=== PATIENT | male | born 1960 | race Caucasian/White ===

== ENCOUNTER 2017-01-05 11:23 | Observation (INO) | payer SELFPAY ==
[2017-01-05] VITALS (8 sets, daily range): BP systolic 123–131; BP diastolic 70–82; PULSE 76–82; RESP 18–22; TEMP 97.2–98.3; O2SAT 94–100
[~2017-01-05] VITALS: Ht 167.6 cm; Wt 94.0 kg
[2017-01-05] MEDS ORDERED: SODIUM CHLOR 0.9% 1000 ML INJ 1,000 ML IV ONE ×2 (11:30)
[2017-01-05] MEDS ORDERED: SODIUM CHLORIDE 0.9% FLUSH 10 ML FLUSH IVF PRN (11:30)
[2017-01-05] MEDS ORDERED: INSULIN HUMAN REGULAR 1,000 UNITS/10 ML VIAL SQ ONE (11:30)
[2017-01-05] MEDS ORDERED: MORPHINE SULFATE 4 MG/ML INJ IV PUSH ONE (11:45)
--- NOTE | 2017-01-05 11:59 | PD ---
HPI Chief Complaint: Allergic/Adverse Reaction Time Seen by Provider: 11:30 Travel History International Travel<30 days: No Contact w/Intl Traveler<30days: No Traveled to known affect area: No History of Present Illness HPI Is a 56-year-old man who presents emergency department for concern for allergic reaction. He states he injected a new type of insulin this morning, and the patient informed, unsure what the name is. He took around 8 AM. He went to work at [employer] he began to feel tongue swelling, lightheaded and dizzy, felt like she is given a pass out, got pale and diaphoretic. He has had multiple episodes of nausea vomiting. Ambulance was called. When they arrived they found him ill-appearing pale and diaphoretic. His blood sugar was elevated in the 400s. Blood pressure was elevated, heart rate was within the normal range. They felt like his tongue and lips were swollen. He improved some in route. They gave 0.3 mg of subcutaneous epinephrine, 125 mg of IV Solu-Medrol, and a breathing treatment. They heard wheezing on exam as well. Patient states she's had an allergic reaction before but nothing this pronounced. He is currently complaining of severe headache that he states started this morning, and nausea. History Past Medical History Narrative Medical CAD Diabetes Hypertension Neuropathy Tetanus Vaccination: < 5 Years Influenza Vaccination: Yes Social History Alcohol Use: No Tobacco Use: No Allergies-Medications (Allergen,Severity, Reaction): Coded Allergies: Latex (Verified Allergy, Unknown, 01/05/17) Penicillin (Verified Allergy, Unknown, 01/05/17) Review of Systems Except as stated in HPI: all other systems reviewed are Neg Physical Exam Narrative GENERAL: Ill-appearing 56-year-old man, anxious, pale, diaphoretic. SKIN: Focused skin assessment cool, pale. No urticaria or rash. HEAD: Atraumatic. Normocephalic. EYES: Pupils equal and round. No scleral icterus. No injection or drainage. ENT: No nasal bleeding or discharge. Mucous membranes pink and moist. NECK: Trachea midline. No JVD. CARDIOVASCULAR: Heart rates regular. No appreciable murmurs. RESPIRATORY: Some coarse breath sounds but no appreciable wheezing. GASTROINTESTINAL: Abdomen soft, non-tender, nondistended. Hepatic and splenic margins not palpable. MUSCULOSKELETAL: No obvious deformities. No edema. NEUROLOGICAL: Awake and alert. No obvious cranial nerve deficits. Motor grossly within normal limits. Normal speech. PSYCHIATRIC: Anxious. Data Data Last Documented VS Vital Signs Date Time Temp Pulse Resp B/P Pulse Ox O2 Delivery O2 Flow Rate FiO2 01/05/17 12:48 79 20 131/70 98 Room Air 01/05/17 12:00 3.00 01/05/17 11:33 97.2 Orders Electrocardiogram (01/05/17 11:30) Complete Blood Count With Diff (01/05/17 11:30) Comprehensive Metabolic Panel (01/05/17 11:30) Magnesium (Mg) (01/05/17 11:30) Prothrombin Time / Inr (Pt) (01/05/17 11:30) Act Partial Throm Time (Ptt) (01/05/17 11:30) Troponin I (01/05/17 11:30) Lipase (01/05/17 11:30) Chest, Single Ap (01/05/17 11:30) Ecg Monitoring (01/05/17 11:30) Iv Access Insert/Monitor (01/05/17 11:30) Oximetry (01/05/17 11:30) Oxygen Administration (01/05/17 11:30) Sodium Chloride 0.9% Flush (Ns Flush) (01/05/17 11:30) Ct Brain W/O Iv Contrast(Rout) (01/05/17 ) Insulin Human Regular Inj (Novolin R Inj (01/05/17 11:30) Sodium Chlor 0.9% 1000 Ml Inj (Ns 1000 M (01/05/17 11:30) Sodium Chlor 0.9% 1000 Ml Inj (Ns 1000 M (01/05/17 11:30) Morphine Inj (Morphine Inj) (01/05/17 11:45) Place In Observation (01/05/17 ) Vital Signs (Adult) Q4H (01/05/17 14:12) Bedside Glucose WILLEM.AC&HS (01/05/17 14:12) Patient Support Specialist / Telemetry .CONTINUOUS (01/05/17 14:12) Intake + Output WILLEM.QSHIFT (01/05/17 14:12) Diet 1800 Ada Cons Carb (01/05/17 Dinner) Sodium Chlor 0.9% 1000 Ml Inj (Ns 1000 M (01/05/17 14:12) Sodium Chloride 0.9% Flush (Ns Flush) (01/05/17 14:15) Sodium Chloride 0.9% Flush (Ns Flush) (01/05/17 21:00) Acetaminophen (Tylenol) (01/05/17 14:15) Ondansetron Inj (Zofran Inj) (01/05/17 14:15) Basic Metabolic Panel (Bmp) (01/06/17 06:00) Complete Blood Count With Diff (01/06/17 06:00) Resp Oxygen James C Titrat 1-4 L (01/05/17 ) Heparin Inj (Heparin Inj) (01/05/17 14:15) Naloxone Inj (Narcan Inj) (01/05/17 14:15) Insulin Aspar Prot 70/30 Inj (Novolog Mi (01/05/17 17:00) Bedside Glucose WILLEM.AC&HS&03 (01/05/17 14:12) Blood Glucose Goal (Criteria) (01/05/17 14:12) Hypoglycemia 70 Mg/Dl Or < (01/05/17 14:12) Notify Dr: Other (01/05/17 14:12) Dextrose 50% In Frank (Vial) Inj (D50w (Vi (01/05/17 14:15) Glucagon Inj (Glucagon Inj) (01/05/17 14:15) Insulin Human Reg Supp Scale (Novolin R (01/05/17 16:00) Admit Order (Ed Use Only) (01/05/17 ) Labs Laboratory Tests Test 01/05/17 11:40 White Blood Count 9.4 TH/MM3 Red Blood Count 5.47 MIL/MM3 Hemoglobin 14.5 GM/DL Hematocrit 44.6 % Mean Corpuscular Volume 81.4 FL Mean Corpuscular Hemoglobin 26.6 PG Mean Corpuscular Hemoglobin 32.6 % Concent Red Cell Distribution Width 15.0 % Platelet Count 260 TH/MM3 Mean Platelet Volume 8.0 FL Neutrophils (%) (Auto) 59.4 % Lymphocytes (%) (Auto) 32.0 % Monocytes (%) (Auto) 6.6 % Eosinophils (%) (Auto) 1.4 % Basophils (%) (Auto) 0.6 % Neutrophils # (Auto) 5.6 TH/MM3 Lymphocytes # (Auto) 3.0 TH/MM3 Monocytes # (Auto) 0.6 TH/MM3 Eosinophils # (Auto) 0.1 TH/MM3 Basophils # (Auto) 0.1 TH/MM3 CBC Comment DIFF FINAL Differential Comment Prothrombin Time 10.5 SEC Prothromb Time International 1.0 RATIO Ratio Activated Partial 23.1 SEC Thromboplast Time Sodium Level 138 MEQ/L Potassium Level 3.8 MEQ/L Chloride Level 106 MEQ/L Carbon Dioxide Level 20.7 MEQ/L Anion Gap 11 MEQ/L Blood Urea Nitrogen 11 MG/DL Creatinine 1.08 MG/DL Estimat Glomerular Filtration 71 ML/MIN Rate Random Glucose 421 MG/DL Calcium Level 8.4 MG/DL Magnesium Level 1.9 MG/DL Total Bilirubin 0.3 MG/DL Aspartate Amino Transf 22 U/L (AST/SGOT) Alanine Aminotransferase 51 U/L (ALT/SGPT) Alkaline Phosphatase 82 U/L Troponin I LESS THAN 0.02 NG/ML Total Protein 7.0 GM/DL Albumin 3.5 GM/DL Lipase 122 U/L [facility] Medical Decision Making Medical Screen Exam Complete: Yes Emergency Medical Condition: Yes Interpretation(s) My review of EKG: Normal sinus rhythm at a rate of 79, leftward axis, normal intervals, no definite evidence of acute ischemia. Differential Diagnosis Allergic reaction, ICH, [place], other Narrative Course Medical decision making INITIAL: A 56-year-old male presents emergency department with presumed allergic reaction although the history is not quite clear. He feels like he's having allergic reaction to insulin he took at 8:00 this morning. The time frame seems a little bit delayed. He had vomiting and funny feeling in his throat and some wheezing, but also has headache which is fairly prominent. He has not had any urticaria or rash. I worry we may be missing something else. He has not had any chest pain or trouble breathing. We'll do a thorough workup including lab work, CT head, x-ray and EKG. We'll continue treatment with IV fluids, and close monitoring. FINAL: 56 year-old man with unusual episodes of this morning, possibly an allergic reaction, but not clearly so. So she with hyperglycemia. Been out of insulin for couple days. He was taking large amounts of 7030, I think 40 units 3 times daily, and is been out for several days. He went to Dr. Gregorio office for the first time yesterday and they put him on Levemir last night. She was to call with his blood sugars every morning so they can adjust it from there but he had this episode. I think that he should be monitored in the hospital overnight, given the diagnostic uncertainty regarding this episode, and the persistent hyperglycemia. Diagnosis Primary Impression: Hyperglycemia Additional Impression: Allergic reaction Haim Santiago MD January 05, 2017 11:59
[2017-01-05 12:08] LABS: AUTOMATED NEUTROPHIL # 5.6 TH/MM3 (1.8-7.7); BASOPHIL # 0.1 TH/MM3 (0-0.2); BASOPHIL % 0.6 % (0.0-2.0); EOSINOPHIL # 0.1 TH/MM3 (0-0.4); EOSINOPHIL % 1.4 % (0.0-4.0); HEMATOCRIT 44.6 % (39.0-51.0); HEMO FLAGS DIFF FINAL; MEAN CELL VOLUME 81.4 FL (80.0-100.0); MEAN CORPUSCULAR HEMOGLOBIN 26.6 PG (27.0-34.0); MEAN CORPUSCULAR HGB CONC 32.6 % (32.0-36.0); MONO % 6.6 % (0.0-8.0); NEUT % 59.4 % (16.0-70.0); PLATELET COUNT 260 TH/MM3 (150-450); RED BLOOD COUNT 5.47 MIL/MM3 (4.50-5.90); WHITE BLOOD COUNT 9.4 TH/MM3 (4.0-11.0)
--- NOTE | 2017-01-05 12:08 | RADRPT ---
EXAM DATE/TIME: 01/05/2017 11:50 [facility] COMPARISON: No previous studies available for comparison. INDICATIONS : Headaches and shortness of breath. RADIATION DOSE: 45.80 CTDIvol (mGy) MEDICAL HISTORY : Cardiovascular disease. Diabetes mellitus type 2. SURGICAL HISTORY : Coronary artery stent. ENCOUNTER: Initial ACUITY: 1 day PAIN SCALE: 0/10 LOCATION: TECHNIQUE: Multiple contiguous axial images were obtained of the head. Using automated exposure control and adj ustment of the mA and/or kV according to patient size, radiation dose was kept as low as reasonably a chievable to obtain optimal diagnostic quality images. FINDINGS: CEREBRUM: The ventricles are normal for age. No evidence of midline shift, mass lesion, hemorrhage or acute in farction. No extra-axial fluid collections are seen. POSTERIOR FOSSA: The cerebellum and brainstem are intact. The 4th ventricle is midline. The cerebellopontine angle i s unremarkable. EXTRACRANIAL: The visualized portion of the orbits is intact. SKULL: The calvaria is intact. No evidence of skull fracture. CONCLUSION: No acute intracranial disease. Jaren Lam MD on January 05, 2017 at 12:03 Board Certified Radiologist. This report was verified electronically.
[2017-01-05 12:16] LABS: APTT (PATIENT) 23.1 SEC (24.3-30.1); PROTHROMBIN TIME - PATIENT 10.5 SEC (9.8-11.6)
[2017-01-05 12:39] LABS: ALKALINE PHOSPHATASE 82 U/L (45-117); ALT (GPT) 51 U/L (12-78); ANION GAP 11 MEQ/L (5-15); AST (GOT) 22 U/L (15-37); BICARBONATE 20.7 MEQ/L (21.0-32.0); BLOOD UREA NITROGEN 11 MG/DL (7-18); CHLORIDE 106 MEQ/L (98-107); GLOMERULAR FILTRATION RATE 71 ML/MIN (>89); MAGNESIUM 1.9 MG/DL (1.5-2.5); POTASSIUM 3.8 MEQ/L (3.5-5.1); SODIUM (NA) 138 MEQ/L (136-145); TOTAL BILIRUBIN ADULT 0.3 MG/DL (0.2-1.0)
--- NOTE | 2017-01-05 12:49 | RADRPT ---
EXAM DATE/TIME: 01/05/2017 12:09 [facility] COMPARISON: No previous studies available for comparison. INDICATIONS : Vomiting and syncopal episode today. MEDICAL HISTORY : Congestive heart failure. SURGICAL HISTORY : Coronary artery stent. ENCOUNTER: Initial ACUITY: 1 day PAIN SCORE: 3/10 LOCATION: Bilateral chest FINDINGS: A single view of the chest demonstrates minimal bibasilar subsegmental atelectasis without evidence o f mass, infiltrate or effusion. The cardiomediastinal contours are unremarkable. Osseous structures are intact. CONCLUSION: Bibasilar subsegmental atelectasis. Jaren Lam MD on January 05, 2017 at 12:47 Board Certified Radiologist. This report was verified electronically.
[2017-01-05] MEDS ORDERED: ONDANSETRON HCL 4 MG/2 ML VIAL IVP PRN (14:15)
[2017-01-05] MEDS ORDERED: GLUCAGON 1 MG/ML VIAL OTHER PRN (14:15)
[2017-01-05] MEDS ORDERED: DEXTROSE 50% IN WATER 50 ML VIAL(D50) IV PRN (14:15)
[2017-01-05] MEDS ORDERED: NALOXONE HCL 0.4 MG/ML AMP IV PRN (14:15)
[2017-01-05] MEDS ORDERED: SODIUM CHLORIDE 0.9% FLUSH 10 ML FLUSH IV FLUSH PRN (14:15)
[2017-01-05] MEDS: SODIUM CHLOR 0.9% 1000 ML INJ 1,000 ML IV SCH (14:52)
[2017-01-05] MEDS: HEPARIN SODIUM - SQ 10,000 UNITS/ML VIAL SQ SCH (14:53)
[2017-01-05] MEDS ORDERED: PLAV75TA29 PO (15:09)
[2017-01-05] MEDS ORDERED: LOTR10CA2 PO (15:09)
[2017-01-05] MEDS ORDERED: NRDRIP SQ (15:09)
[2017-01-05] MEDS ORDERED: TRAM50TA PO (15:09)
[2017-01-05] MEDS ORDERED: LITH450T PO (15:09)
[2017-01-05] MEDS ORDERED: PROT40TA PO (15:09)
[2017-01-05] MEDS ORDERED: PRAS10TA PO (15:09)
[2017-01-05] MEDS ORDERED: ATOR40TA16 PO (15:09)
[2017-01-05] MEDS ORDERED: NITRSPR6 SL (15:09)
[2017-01-05] MEDS ORDERED: NOVO7030P2 SQ (15:09)
[2017-01-05] MEDS ORDERED: METO50TA11 PO (15:09)
[2017-01-05] MEDS ORDERED: ISOS30TA3 PO (15:09)
[2017-01-05] MEDS ORDERED: CYMB30CA PO (15:09)
[2017-01-05] MEDS ORDERED: GABA600T PO (15:09)
[2017-01-05] MEDS: INSULIN NovoLIN REGULAR SUPPLEMENTAL SCALE SQ SCH ×2 (16:13→20:42)
[2017-01-05] MEDS ORDERED: METOPROLOL SUCCINATE 50 MG EXTENDED RELEASE TAB PO SCH (18:30)
[2017-01-05] MEDS ORDERED: NITROGLYCERIN 400 MCG/SPRAY 4.9 GM BOTTLE SL PRN (18:30)
[2017-01-05] MEDS: INSULIN ASPAR PROT 70/30 1,000 UNITS/10 ML VIAL SQ SCH (18:33)
--- NOTE | 2017-01-05 20:07 | EKG ---
Date Performed: 01/05/2017 Time Performed: 11:29:16 PTAGE: 56 years EKG: Sinus rhythm VOLTAGE CRITERIA FOR LVH NONSPECIFIC T-WAVE ABNORMALITY ABNORMAL ECG NO PREVIOUS TRACING DOCTOR: Cece Yuan Interpretating Date/Time 01/05/2017 20:05:20
[2017-01-05] MEDS: SODIUM CHLORIDE 0.9% FLUSH 10 ML FLUSH IV FLUSH SCH (20:31)
[2017-01-05] MEDS ORDERED: XANA2TAB2 PO (20:35)
[2017-01-05] MEDS: ATORVASTATIN 40 MG TAB PO SCH (20:36)
[2017-01-05] MEDS: LITHIUM CARBONATE 450 MG CONTROLLED RELEASE TAB PO SCH (20:36)
[2017-01-06] MEDS: SODIUM CHLOR 0.9% 1000 ML INJ 1,000 ML IV SCH ×3 (01:10→23:09)
[2017-01-06] MEDS: HEPARIN SODIUM - SQ 10,000 UNITS/ML VIAL SQ SCH ×2 (01:10→17:16)
[2017-01-06 04:59] VITALS: BP 103/59; PULSE 62; RESP 18; TEMP 97.7; O2SAT 95
[2017-01-06 05:41] LABS: BASOPHIL % 0.2 % (0.0-2.0); EOSINOPHIL % 0.1 % (0.0-4.0); HEMO FLAGS DIFF FINAL; LYMPH % 13.5 % (9.0-44.0); LYMPHOCYTE # 1.2 TH/MM3 (1.0-4.8); MEAN CELL VOLUME 80.2 FL (80.0-100.0); MEAN CORPUSCULAR HEMOGLOBIN 26.8 PG (27.0-34.0); MEAN CORPUSCULAR HGB CONC 33.4 % (32.0-36.0); MONO % 6.7 % (0.0-8.0); NEUT % 79.5 % (16.0-70.0); PLATELET COUNT 245 TH/MM3 (150-450); RED BLOOD COUNT 5.12 MIL/MM3 (4.50-5.90); RED CELL DISTRIBUTION WIDTH 14.7 % (11.6-17.2); WHITE BLOOD COUNT 8.8 TH/MM3 (4.0-11.0)
[2017-01-06] MEDS: ISOSORBIDE MONONITRATE 30 MG TAB PO SCH (05:57)
[2017-01-06] MEDS: INSULIN NovoLIN REGULAR SUPPLEMENTAL SCALE SQ SCH ×4 (06:08→21:00)
[2017-01-06 06:09] LABS: BICARBONATE 23.9 MEQ/L (21.0-32.0); POTASSIUM 3.9 MEQ/L (3.5-5.1)
[2017-01-06 07:50] VITALS: BP 94/55; PULSE 58; RESP 20; TEMP 98.3; O2SAT 97
[2017-01-06 08:00] VITALS: PULSE 51
--- NOTE | 2017-01-06 08:31 | MH ---
cc: PAUL ROBERTS MD DATE OF ADMISSION 01/05/2017 DATE OF 1960 Travel in the last 30 days, none. CHIEF COMPLAINT Allergic reaction secondary to Levemir insulin. HISTORY OF THE PRESENT ILLNESS This is a pleasant 56-year-old white male who was in his usual state of health up until today. The patient recently moved to this area to be close to this sister and had started a new job at [employer]. Since the patient is a known insulin dependent diabetic he went to a new PCP so he could establish a medical relationship here in this commumnity. The patient's insulin was changed from 70/30 to Levemir and the patient took the first dose this morning at 8 o'clock. According to the record and the patient, when he went to [employer] he noticed a euphoric, funny sensation. He became pale and diaphoretic, lightheaded and dizzy and felt like he was going to pass out. He states that he could feel his tongue swelling and had nausea and vomiting at least three times. Ambulance was called for the patient per his co-workers and they found him diaphoretic and very pale, although he was responding to them verbally. His blood sugar was elevated in the 400s. He was given a subcutaneous dose of epinephrine, IV Solu-Medrol and a breathing treatment and was transported to the hospital. The patient felt this was some type of allergic reaction to the Levemir insulin he had taken this morning. The patient denies any chest pain. No shortness of breath. He was positive for a mild headache but denied any other symptoms of diarrhea or constipation. He was positive for nausea and vomiting during this episode. PAST MEDICAL HISTORY Medical history includes: 1. Diabetes mellitus insulin dependent. 2. Hypertension. 3. Diabetic neuropathy. 4. Coronary artery disease. PAST SURGICAL HISTORY Cardiac stents. ALLERGIES LATEX, PENICILLIN, SHELL FISH, IODINE AND BEE STINGS. MEDICATIONS His reconciled medications reported: 1. Gabapentin. 2. Cymbalta. 3. Ryegate. 4. Metoprolol. 5. Lotrel. 6. Atorvastatin. 7. Novolin 70/30 insulin. 8. Novolin regular insulin. 9. Isosorbide ER. 10. Nitroglycerine spray. 11. Tramadol. 12. Plavix. 13. Effient. 14. Protonix. FAMILY HISTORY Diabetes, heart disease, cancer and ethyl alcohol abuse. And psychiatric disorders. SOCIAL HISTORY The patient is currently single. Lives alone. He does have a sister who lives in the area and that he is in contact with. She would be his next of kin if needed. No tobacco. No alcohol. No illicit drugs. REVIEW OF SYSTEMS Positive findings noted in the history of present illness which were nausea and vomiting times three, headache, dizziness, lightheadedness, pale, diaphoretic, shortness of breath, wheezing, tongue swelling. Other systems negative or unremarkable. PHYSICAL EXAMINATION VITAL SIGNS: Temperature is 98.3, pulse 76, respiratory rate 18, blood pressure 126/73. O2 saturation 94% currently on room air. The patient initially was placed on 3 liters nasal cannula but is now maintaining his saturation off of oxygen. GENERAL: Mildly obese, white male, looks to be his stated age. Very talkative with some mild anxiety related to his current medical condition. SKIN: Pale but warm and dry. No acute rash noted. HEENT: Atraumatic, normocephalic. Pupils equal, round, reactive to light and accommodation at 2. Mucous membranes are moist. Has no scleral icterus. His tongue is midline. Mucous membranes are pink. NECK: Supple. No JVD. CARDIOVASCULAR: S1-S2. Rhythm appears to be regular. No murmurs, rubs, or gallops audible. LUNGS: The patient has some mildly diminished breath sounds but no audible wheezing or rhonchi. ABDOMEN: Round, soft and nontender, nondistended. Active bowel sounds. MUSCULOSKELETAL: No obvious deformities. No edema. He moves all extremities with purpose. NEUROLOGIC: He is now awake, alert, aware of his surroundings. Mild anxiety. Talkative. Tongue is midline. Speech is normal and clear. PSYCHIATRIC: Mood and affect are appropriate with some anxiety. LABORATORY DATA Diagnostic data, WBC count 9.4, RBC 5.47, hemoglobin 14.5, hematocrit 44.6. Platelet count 260. Differential blood count is normal. Chemistry, sodium 138, potassium 3,8, chloride 106, carbon dioxide 20.7, anion gap 11, BUN 11, creatinine 1.08. GFR 71. Random glucose 421. Calcium is 8.4. Troponin is less than 0.02. All other labs are normal. PT INR is 1.0. IMAGING Imaging studies show chest x-ray to have some bibasilar segmental atelectasis. CT scan of the head no acute intracranial disease. ASSESSMENT AND PLAN 1. Diabetes mellitus type 2, uncontrolled and escalated. 2. Allergic reaction. 3. History of coronary artery disease. 4. Hypertension. 5. Diabetic peripheral neuropathy. Our plan is to monitor chiefly his blood sugars for control. He headache been placed back on 70/30 insulin and we will monitor his Accu-Cheks before meals and bedtime and at 3 a.m. with sliding scale insulin. The patient will be on diabetic ADA diet. Medications have been reconciled except for pain management. This will need to be done per the physician. Vital signs are q.4h. He will be placed and monitored on cardiac telemetry. Intake and output. Diet will be 1800 calorie ADA diet. The patient will have labs drawn in the morning. Deep venous thrombosis prophylaxis with heparin. In the emergency room the patient received labs, a bolus of sodium chloride, O2 monitoring, pain management for his headache which he states is better. He is alert and is not having any problems with any type of allergic reactions at this time, that seems to have resolved. The patient is full code, full aggressive care and we will continue to monitor. Dictated by: NATALIE Wyman MD ANGELIA Clark/RANDY /6:36 PM /8:30 AM
[2017-01-06] MEDS ORDERED: AMLODIPINE BENAZEPRIL PO SCH (09:00)
[2017-01-06] MEDS ORDERED: LISINOPRIL 20 MG TAB PO SCH (09:00)
[2017-01-06] MEDS ORDERED: amLODIPine BESYLATE 5 MG TAB PO SCH (09:00)
--- NOTE | 2017-01-06 09:19 | HHI.PR ---
Subjective Remarks resting in bed awake alert, no SOB or pain, afebrile (Jessi Layne) Objective Objective Results - Vital Signs Date Time Temp Pulse Resp B/P Pulse Ox O2 Delivery O2 Flow Rate FiO2 01/06/17 07:50 98.3 58 20 94/55 97 01/06/17 04:59 97.7 62 18 103/59 95 01/05/17 21:43 96 Nasal Cannula 2.00 01/05/17 20:09 98.2 80 18 126/72 94 01/05/17 16:40 98.3 76 18 126/73 94 01/05/17 12:48 79 20 131/70 98 Room Air 01/05/17 12:11 18 01/05/17 12:00 98 Nasal Cannula 3.00 01/05/17 11:45 100 3.00 01/05/17 11:33 98 Room Air 01/05/17 11:33 98 Room Air 01/05/17 11:33 97.2 79 22 123/82 98 Room Air 01/05/17 11:33 75 22 98 Room Air 01/05/17 11:26 97.2 82 22 123/82 98 (Jessi Layne) Result Diagram: 01/06/17 0458 01/06/17 0408 ROS General: Weakness (general), Other (10 point ROS done3) Pulmonary: SOB (occ.) Neuro/MS: Lightheaded (at times) (Jessi Layne) Physical Exam Physical Exam PHYSICAL EXAMINATION GENERAL: This is a well-developed, mild obese male who appears to be in no acute distress. He is alert and awake, HEAD: Normocephalic without any lesion or mass noted. Facial features appear symmetric. OROPHARYNGEAL: Oropharynx without erythema or edema. NECK: Supple. No nuchal rigidity or lymphadenopathy. Trachea midline without deviation. CARDIAC: Regular rhythm, regular rate, S1 and S2 are heard. LUNGS: Clear to auscultation bilaterally. no wheeze, no rhonchi ABDOMEN: Soft, nontender, no organomegaly or masses. Bowel sounds are heard in all four quadrants. EXTREMITIES: no edema. Pulses equal bilateral. NEUROLOGICAL: Patient mood and affect appropriate. talkative SKIN:Warm and moist Objective Remarks Im feeling better. (Jessi Layne) A/P Assessment and Plan 1. Diabetes mellitus type 2, uncontrolled and escalated. accucheck 197 this am, Taking 40units BID last 24 hrs. and sliding scale 2. Allergic reaction. possible, resolved sysmptoms now 3. History of coronary artery disease. no chest pain, medical management 4. Hypertension. having some hypotension this am , and yesterday, Hold BP meds X 3 for now 5. Diabetic peripheral neuropathy. accucheck and ada control, discussed exercize and wt. loss. DC planning if BS and BP controlled. Can then f/u with PCP. Discussed With: Nurse, Family (pt.), Other (dr. Reyes, seen on her behalf) ( Jessi Layne) Assessment and Plan patient seen and examined agree with above assessment and plan discussed with patient and family at bed side discussed with JESSI ESTRADA (Vanessa Reyes MD) Jessi Layne January 06, 2017 09:19 Vanessa Reyes MD January 06, 2017 11:31
[2017-01-06 09:38] VITALS: O2SAT 97
[2017-01-06] MEDS: INSULIN ASPAR PROT 70/30 1,000 UNITS/10 ML VIAL SQ SCH ×2 (09:51→18:03)
[2017-01-06] MEDS: GABAPENTIN 300 MG CAP PO SCH ×3 (09:53→17:59)
[2017-01-06] MEDS: DULoxetine HCl DR 30 MG CAP PO SCH (09:54)
[2017-01-06] MEDS: LITHIUM CARBONATE 450 MG CONTROLLED RELEASE TAB PO SCH ×2 (09:54→23:09)
[2017-01-06] MEDS: CLOPIDOGREL 75 MG TAB PO SCH (09:54)
[2017-01-06] MEDS: PRASUGREL 10 MG TAB PO SCH (09:54)
[2017-01-06 11:43] VITALS: BP 109/61; PULSE 61; RESP 20; TEMP 98; O2SAT 97
[2017-01-06] MEDS: SODIUM CHLORIDE 0.9% FLUSH 10 ML FLUSH IV FLUSH SCH ×2 (12:44→23:09)
[2017-01-06 20:52] VITALS: BP 137/63; PULSE 56; RESP 18; TEMP 97.6; O2SAT 94
[2017-01-06] MEDS: ATORVASTATIN 40 MG TAB PO SCH (21:00)
[2017-01-06] MEDS: ACETAMINOPHEN 325 MG TAB PO PRN (21:20)
[2017-01-07] MEDS ORDERED: diphenhydrAMINE HCL 25 MG CAP PO PRN (00:15)
[2017-01-07 00:27] VITALS: BP 110/62; PULSE 60; RESP 17; TEMP 97.4; O2SAT 94
[2017-01-07] MEDS: ACETAMINOPHEN 325 MG TAB PO PRN (03:28)
[2017-01-07 04:19] VITALS: BP 131/76; PULSE 50; RESP 18; TEMP 97.7; O2SAT 99
[2017-01-07] MEDS: HEPARIN SODIUM - SQ 10,000 UNITS/ML VIAL SQ SCH (04:34)
[2017-01-07 04:48] LABS: POTASSIUM 3.7 MEQ/L (3.5-5.1)
[2017-01-07] MEDS: SODIUM CHLOR 0.9% 1000 ML INJ 1,000 ML IV SCH (06:12)
[2017-01-07] MEDS: INSULIN NovoLIN REGULAR SUPPLEMENTAL SCALE SQ SCH ×2 (07:00→11:00)
[2017-01-07] MEDS: ISOSORBIDE MONONITRATE 30 MG TAB PO SCH (07:53)
[2017-01-07 08:12] VITALS: BP 145/86; PULSE 51; RESP 15; TEMP 96.5; O2SAT 97
[2017-01-07] MEDS: PRASUGREL 10 MG TAB PO SCH (09:03)
[2017-01-07] MEDS: LITHIUM CARBONATE 450 MG CONTROLLED RELEASE TAB PO SCH (09:03)
[2017-01-07] MEDS: GABAPENTIN 300 MG CAP PO SCH (09:03)
[2017-01-07] MEDS: DULoxetine HCl DR 30 MG CAP PO SCH (09:04)
[2017-01-07] MEDS: CLOPIDOGREL 75 MG TAB PO SCH (09:04)
--- NOTE | 2017-01-07 09:33 | HHI.PR ---
Subjective Subjective Remarks patchy erythematous areas where electrodes were, they haven been removed some pruritus, had Benadryl no cp no sob no tongue swelling no fever sister at bsd bgm 118, eating okay Review of Systems Constitutional Constitutional Remarks 12 point ROS completed, neg. except as noted above Vitals/Results Vital Signs Vital Signs Date Time Temp Pulse Resp B/P Pulse Ox O2 Delivery O2 Flow Rate FiO2 01/07/17 08:12 96.5 51 15 145/86 97 01/07/17 04:34 18 01/07/17 04:19 97.7 50 18 131/76 99 01/07/17 00:27 97.4 60 17 110/62 94 01/06/17 20:52 97.6 56 18 137/63 94 01/06/17 11:43 98.0 61 20 109/61 97 01/06/17 09:38 97 Nasal Cannula 3.00 CBC/BMP: 01/06/17 0458 01/07/17 0327 Lab Results Laboratory Tests Test 01/07/17 03:27 Sodium Level 143 MEQ/L Potassium Level 3.7 MEQ/L Chloride Level 111 MEQ/L Carbon Dioxide Level 27.0 MEQ/L Anion Gap 5 MEQ/L Blood Urea Nitrogen 13 MG/DL Creatinine 0.71 MG/DL Estimat Glomerular Filtration 115 ML/MIN Rate Random Glucose 95 MG/DL Calcium Level 8.0 MG/DL Physical Exam General General Appearance: Well Developed, Well Nourished, No Acute Distress, Comfortable Eyes Eye Exam: Pupils Equal, Pupils Reactive Ears & Nose Ears & Nose Exam: Nasal Mucosa Becker Throat Throat Exam: Oral Mucosa Becker & Moist Neck Neck Exam: Neck Supple, Trachea Midline Pulmonary Resp Exam: Breath Sounds Equal, No Distress Cardiology CV Exam: Regular, Good Perfusion Gastrointestinal/Abdomen GI Exam: Soft, Non-Tender, Bowel Sounds Present, Non-Distended Musculoskeletal MS Exam: Joints Intact Integumentary Skin Exam: Warm, Dry Extremeties Extremities Exam: No Edema, Pedal Pulses Palpable Neurologic Neuro Exam: Alert, Awake, Oriented, Speech Clear, Moving All Extremities, No Focal Deficits Psychiatric Psych Exam: Appropriate Responses Assessment/Plan Problem List: (1) Hyperglycemia (2) Allergic reaction Assessment/Plan 1. Diabetes mellitus type 2, uncontrolled and escalated. 2. Allergic reaction. 3. History of coronary artery disease. 4. Hypertension. 5. Diabetic peripheral neuropathy. Plan: continue with accuchecks AC/HS, blood glucose improve no tongue swelling eating okay rash where tele patches were, poss. adhesive allergy, continue Benadryl PRN continue home meds BP control CM for dc planning, arrange blue card if he qualifies. Discharge home today continue 70/30, stop Levemir. Rx given for 70/30. f/u PCP next week Diet-diabetic Activity-as tolerated D/W RN D/W pt and sister D/W Dr. Reyes This pt. was seen by myselfa and Dr Reyes, this note is written on her behalf. Problem Qualifiers (1) Allergic reaction: Qualified Code: T78.40XA - Allergic reaction, initial encounter Jasmin Hayward January 07, 2017 09:33
[2017-01-07] MEDS ORDERED: NOVO7030P2 SQ (09:35)
--- NOTE | 2017-01-07 09:35 | HHI.DCPOC ---
Discharge Care Plan Diagnosis: (1) Allergic reaction (2) Hyperglycemia Your Health Problems Are: Difficulty to Swallow Goals to Promote Your Health * To prevent worsening of your condition and complications * To maintain your health at the optimal level Directions to Meet Your Goals Take your medications as prescribed Follow your dietary instruction Follow activity as directed Keep your appointments as scheduled Take your immunizations and boosters as scheduled If your symptoms worsen call your PCP, if no PCP go to Urgent Care Center or Emergency Room Smoking is Dangerous to Your Health. Avoid second hand smoke Call the 24-hour hour crisis hotline for domestic abuse at Jasmin Hayward. [facility] January 07, 2017 09:35
[2017-01-07] MEDS: INSULIN ASPAR PROT 70/30 1,000 UNITS/10 ML VIAL SQ SCH (09:36)
[2017-01-07] MEDS ORDERED: INSU1MIS15 (10:14)
--- NOTE | 2017-01-07 16:27 | EKG ---
Date Performed: 01/07/2017 Time Performed: 10:44:20 PTAGE: 56 years EKG: SINUS BRADYCARDIA NONSPECIFIC T-WAVE ABNORMALITY BORDERLINE ECG PREVIOUS TRACING : 01/07/2017 03.25 DOCTOR: Edilberto Garcia Interpretating Date/Time 01/07/2017 16:25:44
--- NOTE | 2017-01-07 17:05 | EKG ---
Date Performed: 01/07/2017 Time Performed: 03:25:17 PTAGE: 56 years EKG: SINUS BRADYCARDIA VOLTAGE CRITERIA FOR LVH NONSPECIFIC T-WAVE ABNORMALITY ABNORMAL ECG PREVIOUS TRACING : 01/05/2017 11.29 Compared to the previous tracing rate has decreased DOCTOR: Edilberto Garcia Interpretating Date/Time 01/07/2017 17:04:12
--- NOTE | 2017-01-10 17:55 | HHI.DS ---
Discharge Summary Admission Date January 05, 2017 at 14:18 Discharge Date: January 07, 2017 Admitting Diagnosis hyperglycemia, possible allergic reaction (1) Allergic reaction (2) Hyperglycemia (3) Diabetes 1.5, managed as type 2 CBC/BMP: 01/06/17 0458 01/07/17 0327 Imaging Last Impressions Chest X-Ray 01/05/17 1130 Signed Impressions: Service Date/Time: Thursday, January 05, 2017 12:09 - CONCLUSION: Bibasilar subsegmental atelectasis. Jaren Lam MD Head CT 01/05/17 0000 Signed Impressions: Service Date/Time: Thursday, January 05, 2017 11:50 - CONCLUSION: No acute intracranial disease. Jaren Lam MD Hospital Course This is a pleasant 56-year-old white male who was in his usual state of health up until today. The patient recently moved to this area to be close to this sister and had started a new job at [employer]. Since the patient is a known insulin dependent diabetic he went to a new PCP so he could establish a medical relationship here in this community. The patient's insulin was changed from 70/30 to Levemir and the patient took the first dose this morning at 8 o'clock. According to the record and the patient, when he went to [facility] he noticed a euphoric, funny sensation. He became pale and diaphoretic, lightheaded and dizzy and felt like he was going to pass out. He states that he could feel his tongue swelling and had nausea and vomiting at least three times. Ambulance was called for the patient per his co-workers and they found him diaphoretic and very pale, although he was responding to them verbally. His blood sugar was elevated in the 400s. He was given a subcutaneous dose of epinephrine, IV Solu-Medrol and a breathing treatment and was transported to the hospital. The patient felt this was some type of allergic reaction to the Levemir insulin he had taken this morning. The patient denies any chest pain. No shortness of breath. He was positive for a mild headache but denied any other symptoms of diarrhea or constipation. He was positive for nausea and vomiting during this episode. LABORATORY DATA Diagnostic data, WBC count 9.4, RBC 5.47, hemoglobin 14.5, hematocrit 44.6. Platelet count 260. Differential blood count is normal. Chemistry, sodium 138, potassium 3,8, chloride 106, carbon dioxide 20.7, anion gap 11, BUN 11, creatinine 1.08. GFR 71. Random glucose 421. Calcium is 8.4. Troponin is less than 0.02. All other labs are normal. PT INR is 1.0. IMAGING Imaging studies show chest x-ray to have some bibasilar segmental atelectasis. CT scan of the head no acute intracranial disease. Pt. was admitted for: 1. Diabetes mellitus type 2, uncontrolled and escalated. 2. Allergic reaction. 3. History of coronary artery disease. 4. Hypertension. 5. Diabetic peripheral neuropathy. During the course of the hospitalization, the following took place: Patient was monitored closely, it was no tongue swelling. Possible allergy was additives in insulin. Levemir was stopped. continued with accuchecks AC/HS, blood glucose improved Was given prescription for refills on 7030. There was no tongue swelling eating okay Was noted with rash where tele patches were, poss. adhesive allergy, put on Benadryl PRN continued home meds BP control with home meds CM for dc planning, arranged blue card Patient stabilized Discharge home in stable condition Given instructions to continue 70/30, stop Levemir. Rx given for 70/30. f/u PCP next week Diet-diabetic Activity-as tolerated Pt Condition on Discharge: Stable Discharge Disposition: Discharge Home Discharge Instructions DIET: Follow Instructions for: Diabetic Diet Activities you can perform: Weight Bearing as Tay Follow up Referrals: PCP Follow-up New Medications: Insulin Syringe/U-100/31G X 5/16" 1 ml (Insulin Syringe/U-100/31G X 5/16" 1 ml) 1 Mis Mis 1 EA .ROUTE DIRECTED Blood Sugar Management #1 Ref 0 BOX Continued Medications: Alprazolam (Xanax) 2 Mg Tab 2 MG PO BID PRN ANXIETY Ref 0 TAB Amlodipine-Benazepril (Lotrel) 10-40 Mg Cap 1 CAP PO DAILY Blood Pressure Management #30 Ref 0 CAP Atorvastatin (Atorvastatin) 40 Mg Tab 40 MG PO HS Cholesterol Management #30 Ref 0 TAB Clopidogrel (Plavix) 75 Mg Tab 75 MG PO DAILY Blood Clot Prevention #30 Ref [address] (Cymbalta DR) 30 Mg Capdr 30 MG PO DAILY #30 Ref 0 CAP Gabapentin (Gabapentin) 600 Mg Tab 600 MG PO TID #90 Ref 0 TAB Insulin Human Isophane-Regular 70-30 Inj (Novolin 70-30 Inj) 1,000 Unit/10 Ml Vial 40 UNITS SQ BID Blood Sugar Management #1 Ref 2 ML (This prescription has been renewed) Insulin Human Regular Inj (Novolin R Inj) 100 Unit/Ml Inj 4 UNITS SQ TIDAC Isosorbide Mononitrate ER (Isosorbide Mononitrate ER) 30 Mg Rakesh 30 MG PO DAILY Prevent Chest Pain #30 Ref 0 TAB [place] Carbonate ER ([place] Carbonate ER) 450 Mg Tab 450 MG PO BID Ref 0 TAB Metoprolol Succinate ER 24 HR (Metoprolol Succinate ER 24 HR) 50 Mg Tab 50 MG PO DAILY #30 Ref 0 TAB Nitroglycerin Sublingual [place] (Nitrolingual Sublingual Pumpspray) 0.4 Mg/Act [place] 1 SPR SL ONCE PRN CHEST PAIN Pantoprazole (Protonix) 40 Mg Tab 40 MG PO DAILY Reflux #30 Ref 0 TAB Prasugrel (Effient) 10 Mg Tab 10 MG PO DAILY Blood Clot Prevention #30 Ref 0 TAB Tramadol (Tramadol) 50 Mg Tab 50 MG PO Q6-8H PRN PAIN Ref 0 TAB Jasmin Hayward [facility] January 10, 2017 17:55
== END 2017-01-07 13:35 | disposition home or self-care (01) ==
LOC: NEPE 11:23 → NEDA 14:18 → NEPFCDU 16:27
PROVIDERS: ADMIT Internal Medicine; ATTEND Internal Medicine
DX: R42 Dizziness and giddiness (principal); T38.3X5A Adverse effect of insulin and oral hypoglycemic [antidiabetic] drugs, initial encounter; E11.42 Type 2 diabetes mellitus with diabetic polyneuropathy; E11.65 Type 2 diabetes mellitus with hyperglycemia; I25.10 Atherosclerotic heart disease of native coronary artery without angina pectoris; I10 Essential (primary) hypertension; L29.9 Pruritus, unspecified; Z88.0 Allergy status to penicillin; Z91.040 Latex allergy status; Z79.4 Long term (current) use of insulin; Z95.5 Presence of coronary angioplasty implant and graft; Z79.02 Long term (current) use of antithrombotics/antiplatelets
CPT/HCPCS: 70450; 71010; 80048; 80053; 82948; 83690; 83735; 84484; 85025; 85610; 85730; 93005; 96361; 96372; 96374; 99285; G0378; J1644; J1815; J2270; J7030

== ENCOUNTER 2017-06-09 12:37 | Observation (INO) | payer SELFPAY ==
[2017-06-09] VITALS (7 sets, daily range): BP systolic 114–190; BP diastolic 75–98; PULSE 53–69; RESP 17–20; TEMP 97.7–98.4; O2SAT 95–98
[~2017-06-09] VITALS: Ht 167.6 cm; Wt 95.0 kg
[~2017-06-09 12:37] MED LIST: ATOR40TA16 PO; CYMB30CA PO; GABA600T PO; INSU1MIS15; ISOS30TA3 PO; LITH450T PO; LOTR10CA2 PO; METO50TA11 PO; NITRSPR6 SL; NOVO7030P2 SQ; NRDRIP SQ; PLAV75TA29 PO; PRAS10TA PO; PROT40TA PO; TRAM50TA PO; XANA2TAB2 PO
[2017-06-09] MEDS ORDERED: ASPIRIN 81 MG CHEW TAB PO ONE ×2 (12:45→14:15)
--- NOTE | 2017-06-09 12:46 | PD ---
HPI Chief Complaint: Chest Pain Time Seen by Provider: 12:42 Travel History International Travel<30 days: No Contact w/Intl Traveler<30days: No Traveled to known affect area: No History of Present Illness HPI Patient complaining of chest pain describes as a heaviness that began this morning. Patient's pain woke him from sleep at 8:30am. Patient reports associated headache. Denies anything making it better or worse. Patient reports having 8 stents, but does not have a tangible personal property appraiser currently. Patient does take Plavix which reports he last took yesterday. Patient reports nausea and vomiting yesterday but none today. Patient reports pain radiates to his bilateral upper extremities. Denies any shortness breath, weakness, change in vision, loss or change in bowel or bladder, back pain, vomiting, or abdominal pain. Patient reports he has had pain similar in the past that was relieved by nitroglycerin however he does not have a nitroglycerin currently. PFSH Past Medical History Hx Anticoagulant Therapy: Yes (PLAVIQS) Blood Disorders: No Anxiety: Yes Cancer: No Cardiovascular Problems: Yes (ND X4 AND 8 STENTS ) High Cholesterol: Yes Congestive Heart Failure: Yes Coronary Artery Disease: Yes Diabetes: Yes Endocrine: Yes Genitourinary: Yes (hx of kidney stones) Hypertension: Yes Immune Disorder: No Musculoskeletal: No Neurologic: No Psychiatric: Yes Reproductive: No Respiratory: Yes Sleep Apnea: Yes (does not use CPAP or BIPAP) Past Surgical History Appendectomy: Yes Coronary Stent: Yes (8 STENTS ) Social History Alcohol Use: No Tobacco Use: No Substance Use: No Allergies-Medications (Allergen,Severity, Reaction): Coded Allergies: latex (Unverified Allergy, Unknown, 06/09/17) penicillin G (Unverified Allergy, Unknown, 06/09/17) Reported Meds & Prescriptions Reported Meds & Active Scripts Active Insulin Syringe/U-100/31G X 12/29" 1 ml 1 Mis Mis 1 Ea .ROUTE DIRECTED Novolin 70-30 Inj (Insulin Human Isoph/Insulin Regular) 1,000 Unit/10 Ml Vial 40 Units SQ BID Reported Xanax (Alprazolam) 2 Mg Tab 2 Mg PO BID PRN Cymbalta DR (Duloxetine HCl) 30 Mg Capdr 30 Mg PO DAILY Tramadol (Tramadol HCl) 50 Mg Tab 50 Mg PO Q6-8H PRN [place] Carbonate ER ([place] Carbonate) 450 Mg Tab 450 Mg PO BID Gabapentin 600 Mg Tab 600 Mg PO TID Isosorbide Mononitrate ER (Isosorbide Mononitrate) 30 Mg Rakesh 30 Mg PO DAILY Atorvastatin (Atorvastatin Calcium) 40 Mg Tab 40 Mg PO HS Novolin R Inj (Insulin Human Regular) 100 Unit/Ml Inj 4 Units SQ TIDAC Lotrel (Amlodipine-Benazepril) 10-40 Mg Cap 1 Cap PO DAILY Plavix (Clopidogrel Bisulfate) 75 Mg Tab 75 Mg PO DAILY Nitrolingual Sublingual Pumpspray (Nitroglycerin) 0.4 Mg/Act [place] 1 Spr SL ONCE PRN Protonix (Pantoprazole Sodium) 40 Mg Tab 40 Mg PO DAILY Metoprolol Succinate ER 24 HR (Metoprolol Succinate) 50 Mg Tab 50 Mg PO DAILY Review of Systems Except as stated in HPI: all other systems reviewed are Neg Physical Exam Narrative GENERAL: Well-developed, overly nourished, in no acute distress, and non-ill appearing. SKIN: Focused skin assessment warm and dry. HEAD: Atraumatic. Normocephalic. EYES: Pupils equal and round. EOMI. No scleral icterus. No injection or drainage. ENT: No nasal bleeding or discharge. Mucous membranes pink and moist. NECK: Trachea midline. No JVD. Supple. No nuclear rigidity. CARDIOVASCULAR: Regular rate and rhythm. No murmur appreciated. RESPIRATORY: No accessory muscle use. No respiratory distress. Clear to auscultation. Breath sounds equal bilaterally. MUSCULOSKELETAL: No obvious deformities. No clubbing. No cyanosis. No edema. Full range of motion. NEUROLOGICAL: Awake and alert. No obvious cranial nerve deficits. Motor grossly within normal limits. Normal speech. PSYCHIATRIC: Appropriate mood and affect; insight and judgment normal. Data Data Last Documented VS Vital Signs Date Time Temp Pulse Resp B/P (MAP) Pulse Ox O2 Delivery O2 Flow Rate FiO2 06/09/17 14:05 59 19 136/75 (95) 97 Nasal Cannula 3.00 06/09/17 12:41 97.7 Orders Orders Electrocardiogram (06/09/17 12:42) Basic Metabolic Panel (Bmp) (06/09/17 12:42) Ckmb (Isoenzyme) Profile (06/09/17 12:42) Complete Blood Count With Diff (06/09/17 12:42) Magnesium (Mg) (06/09/17 12:42) Prothrombin Time / Inr (Pt) (06/09/17 12:42) Act Partial Throm Time (Ptt) (06/09/17 12:42) Troponin I (06/09/17 12:42) Chest, Single Ap (06/09/17 12:42) Ecg Monitoring (06/09/17 12:42) Bilateral Bp Monitoring (06/09/17 12:42) Iv Access Insert/Monitor (06/09/17 12:42) Oximetry (06/09/17 12:42) Oxygen Administration (06/09/17 12:42) Aspirin Chew (Aspirin Chew) (06/09/17 12:45) Sodium Chloride 0.9% Flush (Ns Flush) (06/09/17 12:45) Nitroglycerin Sl (Nitrostat Sl) (06/09/17 12:45) Ct Brain W/O Iv Contrast(Rout) (06/09/17 12:44) Morphine Inj (Morphine Inj) (06/09/17 13:30) Ondansetron Inj (Zofran Inj) (06/09/17 13:30) Sodium Chlorid 0.9% 500 Ml Inj (Ns 500 M (06/09/17 13:45) Insulin Human Regular Inj (Novolin R Inj (06/09/17 13:45) CKMB (06/09/17 12:40) CKMB% (06/09/17 12:40) Aspirin Chew (Aspirin Chew) (06/09/17 14:15) Admit Order (Ed Use Only) (06/09/17 14:05) Labs Laboratory Tests Test 06/09/17 12:40 White Blood Count 6.5 TH/MM3 Red Blood Count 5.55 MIL/MM3 Hemoglobin 16.2 GM/DL Hematocrit 46.0 % Mean Corpuscular Volume 82.9 FL Mean Corpuscular Hemoglobin 29.1 PG Mean Corpuscular Hemoglobin Concent 35.2 % Red Cell Distribution Width 14.2 % Platelet Count 240 TH/MM3 Mean Platelet Volume 8.0 FL Neutrophils (%) (Auto) 49.3 % Lymphocytes (%) (Auto) 38.4 % Monocytes (%) (Auto) 8.7 % Eosinophils (%) (Auto) 2.4 % Basophils (%) (Auto) 1.2 % Neutrophils # (Auto) 3.2 TH/MM3 Lymphocytes # (Auto) 2.5 TH/MM3 Monocytes # (Auto) 0.6 TH/MM3 Eosinophils # (Auto) 0.2 TH/MM3 Basophils # (Auto) 0.1 TH/MM3 CBC Comment DIFF FINAL Differential Comment Prothrombin Time 10.1 SEC Prothromb Time International Ratio 0.9 RATIO Activated Partial Thromboplast Time 25.6 SEC Blood Urea Nitrogen 11 MG/DL Creatinine 0.90 MG/DL Random Glucose 305 MG/DL Calcium Level 9.0 MG/DL Magnesium Level 2.0 MG/DL Sodium Level 136 MEQ/L Potassium Level 3.9 MEQ/L Chloride Level 104 MEQ/L Carbon Dioxide Level 24.9 MEQ/L Anion Gap 7 MEQ/L Estimat Glomerular Filtration Rate 87 ML/MIN Total Creatine Kinase 126 U/L Creatine Kinase MB 2.7 NG/ML Troponin I LESS THAN 0.02 NG/ML MDM Medical Decision Making Medical Screen Exam Complete: Yes Emergency Medical Condition: Yes Interpretation(s) EKG reviewed by Dr. Weiss shows sinus rhythm with ventricular is 62. No STEMI. Last Impressions Head CT 06/09/171243 Signed Impressions: Service Date/Time: Friday, June 09, 2017 13:08 - CONCLUSION: Negative noncontrast CT brain. Olegario Rutherford MD Chest X-Ray 06/09/171241 Signed Impressions: Service Date/Time: Friday, June 09, 2017 13:09 - CONCLUSION: 1. No acute cardiopulmonary disease. Edison Fountain MD Laboratory Tests Test 06/09/17 12:40 White Blood Count 6.5 TH/MM3 (4.0-11.0) Red Blood Count 5.55 MIL/MM3 (4.50-5.90) Hemoglobin 16.2 GM/DL (13.0-17.0) Hematocrit 46.0 % (39.0-51.0) Mean Corpuscular Volume 82.9 FL (80.0-100.0) Mean Corpuscular Hemoglobin 29.1 PG (27.0-34.0) Mean Corpuscular Hemoglobin Concent 35.2 % (32.0-36.0) Red Cell Distribution Width 14.2 % (11.6-17.2) Platelet Count 240 TH/MM3 (150-450) Mean Platelet Volume 8.0 FL (7.0-11.0) Neutrophils (%) (Auto) 49.3 % (16.0-70.0) Lymphocytes (%) (Auto) 38.4 % (9.0-44.0) Monocytes (%) (Auto) 8.7 % (0.0-8.0) Eosinophils (%) (Auto) 2.4 % (0.0-4.0) Basophils (%) (Auto) 1.2 % (0.0-2.0) Neutrophils # (Auto) 3.2 TH/MM3 (1.8-7.7) Lymphocytes # (Auto) 2.5 TH/MM3 (1.0-4.8) Monocytes # (Auto) 0.6 TH/MM3 (0-0.9) Eosinophils # (Auto) 0.2 TH/MM3 (0-0.4) Basophils # (Auto) 0.1 TH/MM3 (0-0.2) CBC Comment DIFF FINAL Differential Comment Prothrombin Time 10.1 SEC (9.8-11.6) Prothromb Time International Ratio 0.9 RATIO Activated Partial Thromboplast Time 25.6 SEC (24.3-30.1) Blood Urea Nitrogen 11 MG/DL (7-18) Creatinine 0.90 MG/DL (0.60-1.30) Random Glucose 305 MG/DL (74-106) Calcium Level 9.0 MG/DL (8.5-10.1) Magnesium Level 2.0 MG/DL (1.5-2.5) Sodium Level 136 MEQ/L (136-145) Potassium Level 3.9 MEQ/L (3.5-5.1) Chloride Level 104 MEQ/L (98-107) Carbon Dioxide Level 24.9 MEQ/L (21.0-32.0) Anion Gap 7 MEQ/L (5-15) Estimat Glomerular Filtration Rate 87 ML/MIN (>89) Total Creatine Kinase 126 U/L (39-308) Creatine Kinase MB 2.7 NG/ML (0.5-3.6) Troponin I LESS THAN 0.02 NG/ML Differential Diagnosis Acute coronary syndrome, angina, pneumonia, electrolyte abnormality, intracranial hemorrhage, headache, other Narrative Course Patient was seen and examined. Initial laboratory radiological studies were ordered. IV was established patient was placed on cardiac monitoring. Patient reported minimal improvement of chest pain with nitroglycerin. Patient was then given morphine, which alleviated all of his symptoms. Patient was given a dose of IV insulin along with IV fluids secondary to the hyperglycemia. After CT head was read negative by radiologist patient was given an aspirin. Discussed all findings and plans care with Dr. Weiss, who is in agreement with plan of care and disposition. Discussed all findings and plan of care with patient, who is agreeable for admission. All questions were answered. Patient remained stable throughout ED course. Diagnosis Primary Impression: Chest pain Qualified Codes: R07.9 - Chest pain, unspecified Admitting Information Admitting Physician Requests: Observation Condition: Stable Manuel Bourne Jun 09, 2017 12:46
[2017-06-09] MEDS: SODIUM CHLORIDE 0.9% FLUSH 10 ML FLUSH IVF PRN ×2 (12:47→13:58)
[2017-06-09] MEDS: NITROGLYCERIN 0.4 MG SL 25 TABS/BTL SL SCH ×3 (12:47→13:03)
[2017-06-09 13:12] LABS: AUTOMATED NEUTROPHIL # 3.2 TH/MM3 (1.8-7.7); BASOPHIL # 0.1 TH/MM3 (0-0.2); BASOPHIL % 1.2 % (0.0-2.0); EOSINOPHIL # 0.2 TH/MM3 (0-0.4); EOSINOPHIL % 2.4 % (0.0-4.0); HEMOGLOBIN 16.2 GM/DL (13.0-17.0); LYMPH % 38.4 % (9.0-44.0); LYMPHOCYTE # 2.5 TH/MM3 (1.0-4.8); MEAN CELL VOLUME 82.9 FL (80.0-100.0); MEAN CORPUSCULAR HEMOGLOBIN 29.1 PG (27.0-34.0); MEAN CORPUSCULAR HGB CONC 35.2 % (32.0-36.0); MONO % 8.7 % (0.0-8.0); MONOCYTE # 0.6 TH/MM3 (0-0.9); NEUT % 49.3 % (16.0-70.0); PLATELET COUNT 240 TH/MM3 (150-450); RED BLOOD COUNT 5.55 MIL/MM3 (4.50-5.90); RED CELL DISTRIBUTION WIDTH 14.2 % (11.6-17.2); WHITE BLOOD COUNT 6.5 TH/MM3 (4.0-11.0)
[2017-06-09 13:22] LABS: INTERNATIONAL NORMALIZED RATIO 0.9 RATIO; PROTHROMBIN TIME - PATIENT 10.1 SEC (9.8-11.6)
--- NOTE | 2017-06-09 13:28 | RADRPT ---
EXAM DATE/TIME: 06/09/2017 13:09 [facility] COMPARISON: CHEST SINGLE AP, January 05, 2017, 12:09. INDICATIONS : Chest pain. MEDICAL HISTORY : Hypertension. Congestive heart failure. Diabetes mellitus type I. SURGICAL HISTORY : Coronary artery stent. ENCOUNTER: Initial ACUITY: 1 day PAIN SCORE: 8/10 LOCATION: Bilateral chest FINDINGS: A single view of the chest demonstrates the lungs to be symmetrically aerated without evidence of mas s, infiltrate or effusion. The cardiomediastinal contours are unremarkable. Osseous structures are intact. CONCLUSION: 1. No acute cardiopulmonary disease. Edison Fountain MD on June 09, 2017 at 13:25 Board Certified Radiologist. This report was verified electronically.
[2017-06-09] MEDS ORDERED: ONDANSETRON HCL 4 MG/2 ML VIAL IV PUSH ONE (13:30)
[2017-06-09] MEDS ORDERED: MORPHINE SULFATE 2 MG/ML INJ IV PUSH ONE (13:30)
[2017-06-09 13:34] LABS: BICARBONATE 24.9 MEQ/L (21.0-32.0); BLOOD UREA NITROGEN 11 MG/DL (7-18); CHLORIDE 104 MEQ/L (98-107); GLOMERULAR FILTRATION RATE 87 ML/MIN (>89); GLUCOSE,RANDOM 305 MG/DL (74-106); SODIUM (NA) 136 MEQ/L (136-145)
[2017-06-09 13:38] LABS: TROPONIN I LESS THAN 0.02 NG/ML (0.02-0.05)
[2017-06-09] MEDS ORDERED: SODIUM CHLORID 0.9% 500 ML INJ 500 ML IV ONE (13:45)
[2017-06-09] MEDS ORDERED: INSULIN HUMAN REGULAR 1,000 UNITS/10 ML VIAL IV PUSH ONE (13:45)
--- NOTE | 2017-06-09 13:57 | RADRPT ---
EXAM DATE/TIME: 06/09/2017 13:08 [facility] COMPARISON: CT BRAIN W/O CONTRAST, January 05, 2017, 11:50. INDICATIONS : Headache along with chest pain that radiates to upper arms. RADIATION DOSE: 56.35 CTDIvol (mGy) MEDICAL HISTORY : Cardiovascular disease. Diabetes mellitus type 2. Hypertension. SURGICAL HISTORY : Appendectomy. ENCOUNTER: Initial ACUITY: 1 day PAIN SCALE: 8/10 LOCATION: cranial TECHNIQUE: Multiple contiguous axial images were obtained of the head. Using automated exposure control and adj ustment of the mA and/or kV according to patient size, radiation dose was kept as low as reasonably a chievable to obtain optimal diagnostic quality images. DICOM format image data is available electro nically for review and comparison. FINDINGS: CEREBRUM: The ventricles are normal for age. No evidence of midline shift, mass lesion, hemorrhage or acute in farction. No extra-axial fluid collections are seen. POSTERIOR FOSSA: The cerebellum and brainstem are intact. The 4th ventricle is midline. The cerebellopontine angle i s unremarkable. EXTRACRANIAL: The visualized portion of the orbits is intact. SKULL: The calvaria is intact. No evidence of skull fracture. CONCLUSION: Negative noncontrast CT brain. Olegario Rutherford MD on June 09, 2017 at 13:55 Board Certified Radiologist. This report was verified electronically.
[2017-06-09] MEDS ORDERED: ONDANSETRON HCL 4 MG/2 ML VIAL IV PUSH PRN (15:00)
[2017-06-09] MEDS ORDERED: ACETAMINOPHEN 500 MG CPLT PO PRN (15:00)
[2017-06-09] MEDS ORDERED: NITROGLYCERIN 0.4 MG SL 25 TABS/BTL SL PRN (15:00)
[2017-06-09 16:32] LABS: TROPONIN I LESS THAN 0.02 NG/ML (0.02-0.05)
[2017-06-09] MEDS ORDERED: GLUCAGON 1 MG/ML VIAL OTHER PRN (17:15)
[2017-06-09] MEDS ORDERED: DEXTROSE 50% IN WATER 50 ML VIAL(D50) IV PUSH PRN (17:15)
[2017-06-09] MEDS ORDERED: ALPRAZolam 1 MG TAB PO PRN (17:45)
[2017-06-09] MEDS ORDERED: KETOROLAC TROMETHAMINE 30 MG/ML (IVP) VIAL IV PUSH ONE (17:45)
--- NOTE | 2017-06-09 17:54 | HHI.HP ---
HPI Primary Care Physician No Primary Care Physician Chief Complaint Chest pain History of Present Illness 56-year-old patient with known coronary artery disease including 8 stents presents to emergency room for further evaluation chest pain. Onset this morning upon awakening at 8:30 PM. Location substernal. Characterized as "someone sitting on my chest." With radiation to his arms stating bilateral arms were numb. Duration has been constant, waxing and waning in intensity. Associated symptoms initially included nausea and he vomited 1 nonbloody emesis. No associated symptoms of dyspnea or diaphoresis. No known precipitating or relieving factors. Endorses pain is similar to past anginal pain. Review of Systems General: No fatigue,weakness, fever, chills, or recent illness change. Has been in his general state of health. 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 CV: Continues to have chest pain as stated above. Circumflex coronary artery disease reportedly total of 8 stents. RESP: No SOB, cough, or sputum production. GI: Nausea and vomiting resolved this morning. Denies bowel changes. EXT: No lower leg edema, no paraesthesias MS: No discomfort, change in ROM, injury, or trauma NEURO: No change in memory, difficulty with balance, LOC, motor/sensory deficits PSYCH: No anxiety, depression, or situational stress. SKIN: No rashes, no concerning lesions Past Family Social History Allergies: Coded Allergies: latex (Unverified Allergy, Unknown, 06/09/17) penicillin G (Unverified Allergy, Unknown, 06/09/17) Past Medical History Insulin-dependent diabetic, hypertension, diabetic neuropathy, coronary artery disease, x8 reacts stents, sleep apnea Past Surgical History Appendectomy Reported Medications Reported Meds & Active Scripts Active Insulin Syringe/U-100/31G X 12/29" 1 ml 1 Mis Mis 1 Ea .ROUTE DIRECTED Novolin 70-30 Inj (Insulin Human Isoph/Insulin Regular) 1,000 Unit/10 Ml Vial 40 Units SQ BID Xanax (Alprazolam) 2 Mg Tab 2 Mg PO BID PRN Cymbalta DR (Duloxetine HCl) 30 Mg Capdr 30 Mg PO DAILY Tramadol (Tramadol HCl) 50 Mg Tab 50 Mg PO Q6-8H PRN [place] Carbonate ER ([place] Carbonate) 450 Mg Tab 450 Mg PO BID Gabapentin 600 Mg Tab 600 Mg PO TID Isosorbide Mononitrate ER (Isosorbide Mononitrate) 30 Mg Rakesh 30 Mg PO DAILY Atorvastatin (Atorvastatin Calcium) 40 Mg Tab 40 Mg PO HS Novolin R Inj (Insulin Human Regular) 100 Unit/Ml Inj 4 Units SQ TIDAC Lotrel (Amlodipine-Benazepril) 10-40 Mg Cap 1 Cap PO DAILY Plavix (Clopidogrel Bisulfate) 75 Mg Tab 75 Mg PO DAILY Nitrolingual Sublingual Pumpspray (Nitroglycerin) 0.4 Mg/Act [place] 1 Spr SL ONCE PRN Protonix (Pantoprazole Sodium) 40 Mg Tab 40 Mg PO DAILY Metoprolol Succinate ER 24 HR (Metoprolol Succinate) 50 Mg Tab 50 Mg PO DAILY Active Ordered Medications Current Medications Medications (Trade) Dose Ordered Sig/Darryn Route Start Time Stop Time Status Last Admin (NS Flush) 2 ml UNSCH PRN IVF 06/09/17 12:45 06/09/17 13:58 (NS Flush) 2 ml BID IV FLUSH 06/09/17 21:00 (Tylenol) 500 mg Q4H PRN PO 06/09/17 15:00 (Zofran Inj) 4 mg Q6H PRN IV PUSH 06/09/17 15:00 (Nitrostat Sl) 0.4 mg Q5M PRN SL 06/09/17 15:00 (Aspirin) 325 mg DAILY PO 06/10/17 09:00 (Toradol Inj) 30 mg ONCE ONCE IV PUSH 06/09/17 17:45 06/09/17 17:46 (D50w (Vial) Inj) 50 ml UNSCH PRN IV PUSH 06/09/17 17:15 (Glucagon Inj) 1 mg UNSCH PRN OTHER 06/09/17 17:15 (NovoLOG SUPPLEMENTAL SCALE) 1 ACHS SLIDING SCALE SQ 06/09/17 21:00 Family History Noncontributory for early onset cardiovascular disease. Social History Known coronary artery disease, diabetes, and hypertension. Appropriately on statin therapy. Lifelong nonsmoker. Denies any alcohol or illegal drug use. Single. Works at a local restaurant. Past cardiac testing No recent stress testing Reports x8 cardiac stents, placed while living in [place]. No past records for review. Physical Exam Vital Signs Vital Signs Date Time Temp Pulse Resp B/P (MAP) Pulse Ox O2 Delivery O2 Flow Rate FiO2 06/09/17 16:02 06/09/17 15:57 97.9 53 18 140/79 (99) 98 06/09/17 15:00 55 17 136/79 (98) 98 Nasal Cannula 3.00 06/09/17 14:05 59 19 136/75 (95) 97 Nasal Cannula 3.00 06/09/17 12:54 96 Nasal Cannula 3.00 06/09/17 12:48 97 Nasal Cannula 2.00 06/09/17 12:48 97 Nasal Cannula 2.00 06/09/17 12:41 97.7 69 20 190/98 (128) 95 Physical Exam GENERAL: Alert WN, WD, NAD, pleasant, obese male HEAD: NC, AT CV: RRR, without murmur, rub, gallop, no JVD, S1-S2 no S3-S4. RESP: Clear lungs throughout bilateral, no crackles, wheeze, rhonchi, symmetrical chest rise, nonlabored, able to speak in full sentences ABD: Soft, NT, ND, +BS EXT: Pulses +24, no dependent edema MS: Normal tone 4 extremities, no obvious deformities, full range of motion NEURO: CN II through CN XII grossly intact, motor strength 5/5 PSYCH: A+O 3, pleasant affect, appropriate speech, appropriate mood and affect , insight and judgment SKIN: Normal turgor, normal texture Laboratory Laboratory Tests Test 06/09/17 12:40 06/09/17 15:25 White Blood Count 6.5 Red Blood Count 5.55 Hemoglobin 16.2 Hematocrit 46.0 Mean Corpuscular Volume 82.9 Mean Corpuscular Hemoglobin 29.1 Mean Corpuscular Hemoglobin Concent 35.2 Red Cell Distribution Width 14.2 Platelet Count 240 Mean Platelet Volume 8.0 Neutrophils (%) (Auto) 49.3 Lymphocytes (%) (Auto) 38.4 Monocytes (%) (Auto) 8.7 Eosinophils (%) (Auto) 2.4 Basophils (%) (Auto) 1.2 Neutrophils # (Auto) 3.2 Lymphocytes # (Auto) 2.5 Monocytes # (Auto) 0.6 Eosinophils # (Auto) 0.2 Basophils # (Auto) 0.1 CBC Comment DIFF FINAL Differential Comment Prothrombin Time 10.1 Prothromb Time International Ratio 0.9 Activated Partial Thromboplast Time 25.6 Blood Urea Nitrogen 11 Creatinine 0.90 Random Glucose 305 Calcium Level 9.0 Magnesium Level 2.0 Sodium Level 136 Potassium Level 3.9 Chloride Level 104 Carbon Dioxide Level 24.9 Anion Gap 7 Estimat Glomerular Filtration Rate 87 Total Creatine Kinase 126 104 Creatine Kinase MB 2.7 2.3 Troponin I LESS THAN 0.02 LESS THAN 0.02 Result Diagram: 06/09/17 1240 06/09/17 1240 Imaging Last Impressions Head CT 06/09/17 1244 Signed Impressions: Service Date/Time: Friday, June 09, 2017 13:08 - CONCLUSION: Negative noncontrast CT brain. Olegario Rutherford MD Chest X-Ray 06/09/17 1242 Signed Impressions: Service Date/Time: Friday, June 09, 2017 13:09 - CONCLUSION: 1. No acute cardiopulmonary disease. Edison Fountain MD Course EKG Normal sinus rhythm, normal axis, nonspecific T-wave changes Caprini VTE Risk Assessment Caprini VTE Risk Assessment: No/Low Risk (score <= 1) Caprini Risk Assessment Model Point Value = 1 Point Value = 2 Point Value = 3 Point Value = 5 Age 41-60 Minor surgery BMI > 25 kg/m2 Swollen legs Varicose veins or History of unexplained or recurrent spontaneous Oral contraceptives or hormone replacement Sepsis (< 1 month) Serious lung disease, including pneumonia (< 1 month) Abnormal pulmonary function Acute myocardial infarction Congestive heart failure (< 1 month) History of inflammatory bowel disease Medical patient at bed rest Age 61-74 Arthroscopic surgery Major open surgery (> 45 min) Laparoscopic surgery (> 45 min) Malignancy Confined to bed (> 72 hours) Immobilizing plaster cast Central venous access Age >= 75 History of VTE Family history of VTE Factor V Leiden Prothrombin [id number] Lupus anticoagulant Anticardiolipin antibodies Elevated serum homocysteine Heparin-induced thrombocytopenia Other congenital or acquired thrombophilia Stroke (< 1 month) Elective arthroplasty Hip, pelvis, or leg fracture Acute spinal cord injury (< 1 month) Prophylaxis Regimen Total Risk Factor Score Risk Level Prophylaxis Regimen 0-1 Low Early ambulation 2 Moderate Order ONE of the following: *Sequential Compression Device (SCD) *Heparin 5000 units SQ BID 3-4 Higher Order ONE of the following medications: *Heparin 5000 units SQ TID *Enoxaparin/Lovenox 40 mg SQ daily (WT < 150 kg, CrCl > 30 mL/min) *Enoxaparin/Lovenox 30 mg SQ daily (WT < 150 kg, CrCl > 10-29 mL/min) *Enoxaparin/Lovenox 30 mg SQ BID (WT < 150 kg, CrCl > 30 mL/min) AND/OR *Sequential Compression Device (SCD) 5 or more Highest Order ONE of the following medications: *Heparin 5000 units SQ TID (Preferred with Epidurals) *Enoxaparin/Lovenox 40 mg SQ daily (WT < 150 kg, CrCl > 30 mL/min) *Enoxaparin/Lovenox 30 mg SQ daily (WT < 150 kg, CrCl > 10-29 mL/min) *Enoxaparin/Lovenox 30 mg SQ BID (WT < 150 kg, CrCl > 30 mL/min) AND *Sequential Compression Device (SCD) Assessment and Plan Assessment and Plan #1 Chest pain-admitted to chest pain center. Ruled out with 3 sets of EKGs and cardiac enzymes. Seen and evaluated by Dr. Kushal Duque. Chest discomfort atypical however due to extensive coronary artery disease plan to complete Lexiscan in a.m. #2 History of CAD-Continue aspirin, Imdur, metoprolol, Plavix, and atorvastatin #3 Diabetes type 2-SSI low-dose coverage #4 Diabetic neuropathy-continue gabapentin. All other home medications will be reordered as appropriate. Case management consult placed for possible admission to our [facility] as he does not currently have a PCP or insurance. Mera Machado Jun 09, 2017 17:54
[2017-06-09] MEDS ORDERED: amLODIPine BESYLATE 5 MG TAB PO SCH (19:00)
[2017-06-09 19:24] LABS: TROPONIN I LESS THAN 0.02 NG/ML (0.02-0.05)
[2017-06-09] MEDS ORDERED: ATORVASTATIN 40 MG TAB PO SCH (21:00)
[2017-06-09] MEDS: INSULIN ASPART SUPPLEMENTAL SCALE SQ SCH (21:00)
[2017-06-09] MEDS: SODIUM CHLORIDE 0.9% FLUSH 10 ML FLUSH IV FLUSH SCH (21:00)
[2017-06-09] MEDS: LITHIUM CARBONATE 450 MG CONTROLLED RELEASE TAB PO SCH (22:39)
[2017-06-09] MEDS: GABAPENTIN 300 MG CAP PO SCH (22:39)
[2017-06-10 03:57] VITALS: BP 130/77; PULSE 51; RESP 14; TEMP 97.7; O2SAT 98
[2017-06-10 07:06] VITALS: BP 135/80; PULSE 53; RESP 16; TEMP 97.6; O2SAT 97
[2017-06-10 07:16] VITALS: O2SAT 95
[2017-06-10] MEDS: INSULIN ASPART SUPPLEMENTAL SCALE SQ SCH ×2 (08:00→12:00)
[2017-06-10] MEDS ORDERED: ASPIRIN 325 MG TAB PO SCH (09:00)
[2017-06-10] MEDS ORDERED: LISINOPRIL 20 MG TAB PO SCH (09:00)
[2017-06-10] MEDS: SODIUM CHLORIDE 0.9% FLUSH 10 ML FLUSH IV FLUSH SCH (09:00)
[2017-06-10] MEDS ORDERED: AMLODIPINE BENAZEPRIL PO SCH (09:00)
[2017-06-10] MEDS ORDERED: PANTOPRAZOLE SOD 40 MG DELAYED RELEASE TAB PO SCH (09:00)
[2017-06-10] MEDS ORDERED: ISOSORBIDE MONONITRATE 30 MG TAB PO SCH (09:00)
[2017-06-10] MEDS ORDERED: DULoxetine HCl DR 30 MG CAP PO SCH (09:00)
[2017-06-10] MEDS ORDERED: CLOPIDOGREL 75 MG TAB PO SCH (09:00)
[2017-06-10] MEDS ORDERED: METOPROLOL SUCCINATE 50 MG EXTENDED RELEASE TAB PO SCH (09:00)
[2017-06-10] MEDS ORDERED: REGADENOSON INJ 0.4 MG/5 ML SYR ONE (10:37)
--- NOTE | 2017-06-10 12:46 | RADRPT ---
EXAM DATE/TIME: 06/10/2017 09:31 [place] COMPARISON: No previous studies available for comparison. INDICATIONS : Substernal chest pain. Angina. Myocardial infarction. DOSE: 25.7 mCi Tc99m Myoview at stress. 8.8 mCi Tc99m Myoview at rest. 0.4 mg Lexiscan STRESS SYMPTOMS: Shortness of breath, headache. EJECTION FRACTION: 66% MEDICAL HISTORY : Cardiovascular disease. Congestive heart failure. Diabetes mellitus type 2. SURGICAL HISTORY : Coronary artery stent. ENCOUNTER: Initial ACUITY: 1 day PAIN SCALE: 5/10 LOCATION: Substernal chest TECHNIQUE: The patient underwent pharmacologic stress with infusion of prescribed dose. Continuous ECG tracing was monitored during stress. Gated SPECT imaging was performed after stress and conventional SPECT i maging was performed at rest. The examination was performed on a SPECT/CT scanner, both attenuation and non-corrected datasets were reviewed. FINDINGS: DISTRIBUTION: The maximum perfused segment at stress is in the lateral wall. There is a summed stress score of zero . PERFUSION STUDY: The pattern of perfusion at stress is within normal limits. GATED STUDY: There is intact wall motion and thickening without hypokinetic or dyskinetic segments. CONCLUSION: 1. No fixed or reversible defects to suggest ischemia or infarction. 2. Normal wall motion and calculated ejection fraction. RISK CATEGORY: Low (<1% Annual Mortality Rate) Nicholas Cornejo MD on June 10, 2017 at 12:42 Board Certified Radiologist. This report was verified electronically.
[2017-06-10 13:39] VITALS: BP 171/95; PULSE 66; RESP 18; TEMP 98.4; O2SAT 98
[2017-06-10] MEDS: LITHIUM CARBONATE 450 MG CONTROLLED RELEASE TAB PO SCH (13:45)
[2017-06-10] MEDS: GABAPENTIN 300 MG CAP PO SCH (13:46)
--- NOTE | 2017-06-10 13:49 | HHI.DCPOC ---
Discharge Care Plan Diagnosis: (1) DM (diabetes mellitus) (2) Hypertension (3) Hyperlipidemia (4) CAD (coronary artery disease) (5) H/O heart artery stent (6) Chest pain Goals to Promote Your Health * To prevent worsening of your condition and complications * To maintain your health at the optimal level Directions to Meet Your Goals Take your medications as prescribed Follow your dietary instruction Follow activity as directed Keep your appointments as scheduled Take your immunizations and boosters as scheduled If your symptoms worsen call your PCP, if no PCP go to Urgent Care Center or Emergency Room Smoking is Dangerous to Your Health. Avoid second hand smoke Call the 24-hour hour crisis hotline for domestic abuse at Girma Hernández Jun 10, 2017 13:49
--- NOTE | 2017-06-10 13:49 | HHI.DCPOC ---
Discharge Care Plan Diagnosis: (1) DM (diabetes mellitus) (2) Hypertension (3) Hyperlipidemia (4) CAD (coronary artery disease) (5) H/O heart artery stent (6) Chest pain Goals to Promote Your Health * To prevent worsening of your condition and complications * To maintain your health at the optimal level Directions to Meet Your Goals Take your medications as prescribed Follow your dietary instruction Follow activity as directed Keep your appointments as scheduled Take your immunizations and boosters as scheduled If your symptoms worsen call your PCP, if no PCP go to Urgent Care Center or Emergency Room Smoking is Dangerous to Your Health. Avoid second hand smoke Call the 24-hour hour crisis hotline for domestic abuse at Girma Hernández Jun 10, 2017 13:49
--- NOTE | 2017-06-10 13:49 | HHI.DCPOC ---
Discharge Care Plan Diagnosis: (1) DM (diabetes mellitus) (2) Hypertension (3) Hyperlipidemia (4) CAD (coronary artery disease) (5) H/O heart artery stent (6) Chest pain Goals to Promote Your Health * To prevent worsening of your condition and complications * To maintain your health at the optimal level Directions to Meet Your Goals Take your medications as prescribed Follow your dietary instruction Follow activity as directed Keep your appointments as scheduled Take your immunizations and boosters as scheduled If your symptoms worsen call your PCP, if no PCP go to Urgent Care Center or Emergency Room Smoking is Dangerous to Your Health. Avoid second hand smoke Call the 24-hour hour crisis hotline for domestic abuse at Girma Hernández Jun 10, 2017 13:49
[2017-06-10 15:27] VITALS: BP 120/71; PULSE 71; RESP 18; TEMP 97.6; O2SAT 96
--- NOTE | 2017-06-12 13:00 | EKG ---
Date Performed: 06/09/2017 Time Performed: 18:38:06 PTAGE: 56 years EKG: SINUS BRADYCARDIA POSSIBLE RIGHT VENTRICULAR CONDUCTION DELAY VOLTAGE CRITERIA FOR LVH NONS PECIFIC T-WAVE ABNORMALITY ABNORMAL ECG NO SIG CHANGE PREVIOUS TRACING : 06/09/2017 15.28 DOCTOR: Gabriel Arellano Interpretating Date/Time 06/12/2017 12:58:36
--- NOTE | 2017-06-12 13:00 | EKG ---
Date Performed: 06/09/2017 Time Performed: 15:28:04 PTAGE: 56 years EKG: SINUS BRADYCARDIA VOLTAGE CRITERIA FOR LVH NONSPECIFIC T-WAVE ABNORMALITY ABNORMAL ECG NO S IG CHANGE PREVIOUS TRACING : 01/07/2017 10.44 DOCTOR: Gabriel Arellano Interpretating Date/Time 06/12/2017 12:59:11
--- NOTE | 2017-06-12 13:03 | EKG ---
Date Performed: 06/09/2017 Time Performed: 12:43:51 PTAGE: 56 years EKG: Sinus rhythm VOLTAGE CRITERIA FOR LVH NONSPECIFIC T-WAVE ABNORMALITY ABNORMAL ECG NO SIG CHANGE NO PREVIOUS TRACING DOCTOR: Gabriel Arellano Interpretating Date/Time 06/12/2017 13:02:28
--- NOTE | 2017-06-12 15:39 | TR ---
Date Performed: 06/10/2017 Time Performed: 10:41:47 DOCTOR: Gabriel Arellano DRUG LIST: CLINICAL HISTORY: ANGINA REASON FOR TEST: REASON FOR ENDING: OBSERVATION: CONCLUSION: Lexiscan stress test was performed under standard four minute protocol. Radionuclide was injected one minute prior to ending the test. No electrocardiographic abormalities were present to suggest ischemia. Nuclear imaging and interpretation are pending. COMMENTS:
== END 2017-06-10 17:04 | disposition home or self-care (01) ==
LOC: NEPE 12:37 → NEDA 14:07 → NEPGCP 15:51
PROVIDERS: ADMIT Internal Medicine Cardiovascular Disease; ATTEND Internal Medicine Cardiovascular Disease
DX: R07.89 Other chest pain (principal); E11.40 Type 2 diabetes mellitus with diabetic neuropathy, unspecified; I25.10 Atherosclerotic heart disease of native coronary artery without angina pectoris; F41.9 Anxiety disorder, unspecified; I25.2 Old myocardial infarction; I11.0 Hypertensive heart disease with heart failure; I50.9 Heart failure, unspecified; E78.00 Pure hypercholesterolemia, unspecified; G47.30 Sleep apnea, unspecified; Z79.899 Other long term (current) drug therapy; Z79.01 Long term (current) use of anticoagulants; Z95.5 Presence of coronary angioplasty implant and graft; E11.65 Type 2 diabetes mellitus with hyperglycemia; Z79.4 Long term (current) use of insulin; R00.1 Bradycardia, unspecified
CPT/HCPCS: 70450; 71010; 78452; 80048; 82550; 82552; 82948; 83735; 84484; 85025; 85610; 85730; 93005; 93017; 96372; 96374; 96375; 99285; A9502; G0378; J1815; J1885; J2270; J2405; J2785; J7040